=== PATIENT | male | born 1995 | race Caucasian/White ===

== ENCOUNTER 2024-02-01 21:52 | Emergency (ER) | payer OTHER ==
[2024-02-01 22:08] VITALS: BP 137/98; O2SAT 98
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
[2024-02-01] MEDS: IBUPROFEN 800 MG TABLET PO STA (22:24)
[2024-02-01] MEDS: ACETAMINOPHEN 500 MG TABLET PO STA (22:24)
== END 2024-02-01 22:30 | disposition home or self-care (01) ==
LOC: ED 21:52
DX: S06.0XAA Concussion with loss of consciousness status unknown, initial encounter (principal); V29.99XA Rider (driver) (passenger) of other motorcycle injured in unspecified traffic accident, initial encounter
CPT/HCPCS: 99282; 99283; A9270